=== PATIENT | male | born 1985 | race Caucasian/White ===

== ENCOUNTER 2017-08-21 11:17 | Emergency (ER) | payer OTHER, SELFPAY ==
[2017-08-21 11:20] VITALS: BMI 25.8
--- NOTE | 2017-08-21 12:26 | C.PDOC ---
History Of Present Illness 32 yo male w/PMhx of GERD come in for evaluation of intermittent episode of epigastric "tightness makes me hard to breath" since last night. Pt admits, sx is localized, worse with supine position. Admits, similar sx in past " but not as bad". Pt denies recent illness, fever, chills, headache, dizziness, neck pain , SOB, cough, wheezing, palpitation, V/D, back pain, UTI sx. Ambulate to Ed for evaluation, not in any apparent distress." Time Seen by Provider: 08/21/17 12:00 Chief Complaint (Nursing): Shortness Of Breath History Per: Patient Past Medical History Reviewed: Historical Data, Nursing Documentation, Vital Signs Vital Signs: Last Vital Signs Temp 98.1 F 08/21/17 11:20 Pulse 70 08/21/17 11:20 Resp 18 08/21/17 11:20 BP 132/92 H 08/21/17 11:20 Pulse Ox 100 08/21/17 12:28 - Medical History PMH: No Chronic Diseases Surgical History: No Surg Hx Family History: States: Unknown Family Hx - Social History Hx Tobacco Use: No Hx Alcohol Use: No Hx Substance Use: No - Immunization History Hx Tetanus Toxoid Vaccination: No Hx Influenza Vaccination: No Hx Pneumococcal Vaccination: No Review Of Systems Except As Marked, All Systems Reviewed And Found Negative. Constitutional: Negative for: Fever, Chills ENT: Negative for: Throat Pain Cardiovascular: Negative for: Chest Pain, Palpitations, Orthopnea, Edema, Light Headedness Respiratory: Positive for: Shortness of Breath. Negative for: Wheezing Gastrointestinal: Positive for: Nausea, Abdominal Pain (epigastric). Negative for: Vomiting, Diarrhea, Melena, Hematochezia, Hematemesis Musculoskeletal: Negative for: Neck Pain, Back Pain Skin: Negative for: Rash Neurological: Negative for: Weakness, Numbness, Altered Mental Status, Headache , Dizziness Physical Exam - Physical Exam Appears: Well, Non-toxic, No Acute Distress Skin: Normal Color, Warm, Dry, No Rash Head: Normacephalic Eye(s): bilateral: PERRL Nose: No Discharge Oral Mucosa: Moist Throat: No Erythema, No Drooling Neck: Trachea Midline, Supple Cardiovascular: Rhythm Regular, No Murmur, No JVD Respiratory: No Decreased Breath Sounds, No Accessory Muscle Use, No Stridor, No Wheezing Gastrointestinal/Abdominal: Soft, Tenderness (mild epigastric), No Distention, No Guarding, No Rebound Extremity: Normal ROM, No Pedal Edema, No Deformity, No Swelling Neurological/Psych: Oriented x3, Normal Speech ED Course And Treatment ECG: Interpreted By Me, Viewed By Me ECG Rhythm: Sinus Rhythm Interpretation Of ECG: SR@60/min, NAD, no acute T wave or ST-T changes. O2 Sat by Pulse Oximetry: 100 Pulse Ox Interpretation: Normal - Radiology CXR: Interpreted by Me, Viewed By Me Progress Note: On re-evaluation, pt is afebrile, hemodynamicaly stable. Non- toxic. Tolerate Po well in ED. PulseOx 100% RA. ENT: no acute findigs. Neck : Supple, (-) JVD, (-) carotid bruits B/L. Lungs: CTA B/L, BS equla B/L. CVS: (+)S1S2, reg. Abd: benign, (-) guarding, (-) rebound. Neurologicaly intact. EKG, CXR- no acute changes. Pt has clinical finidngs c/w epigastric pain r/o GERD. Pt advised. ref. to F/u with PMD, GI in 2-3 days for re-evaluation. return to ED if any worsening or new changes. Disposition Counseled Patient/Family Regarding: Studies Performed, Diagnosis, Need For Followup, Rx Given - Disposition Referrals: [facility] [Outside] Olegario Holley MD [Staff Provider] - Disposition: HOME/ ROUTINE Disposition Time: 13:01 Condition: STABLE Additional Instructions: Encourage fluids Diet restriction Take medication as prescribed Follow up with PMD, Gastroenterology in 2-3 days for re-evaluation. return to ED if any worsening or new changes. Prescriptions: Famotidine [Pepcid] 20 mg PO BID #20 tab Pantoprazole Sodium [Protonix] 40 mg PO DAILY #30 tablet.dr Instructions: Ulcer and Gastritis Diet, Gastritis Forms: [facility] (Belizean) Print Language: [place] - Clinical Impression Clinical Impression: Epigastric pain
[2017-08-21 13:46] VITALS: BP 123/79; PULSE 60; RESP 18; TEMP 98.4; O2SAT 98
--- NOTE | 2017-08-21 13:49 | RAD ---
HISTORY: Cough COMPARISON: No prior. TECHNIQUE: Chest PA and lateral FINDINGS: LUNGS: No active pulmonary disease. PLEURA: No significant pleural effusion identified. No pneumothorax apparent. CARDIOVASCULAR: Normal. OSSEOUS STRUCTURES: No significant abnormalities. VISUALIZED UPPER ABDOMEN: Normal. OTHER FINDINGS: None. IMPRESSION: No active disease. Concordant results with the preliminary interpretation rendered by the emergency department physician procedure.
--- NOTE | 2017-08-22 22:34 | CARD ---
APPROVED REPORT EKG Measurement Heart [id number] <Conclusion> Normal sinus rhythm Normal ECG
== END 2017-08-21 13:59 | disposition home or self-care (01) ==
LOC: C.ER 11:17
DX: R10.13 Epigastric pain (principal)

== ENCOUNTER 2017-11-26 08:05 | Emergency (ER) | payer OTHER ==
[2017-11-26 08:21] VITALS: BMI 24.3
[2017-11-26 08:23] VITALS: BP 138/90; PULSE 65; RESP 20; TEMP 98.3; O2SAT 100
--- NOTE | 2017-11-26 08:55 | C.PDOC ---
History Of Present Illness 32-year-old male presents to the emergency department with complaints of feeling anxious and having difficulty sleeping x3 days. He has felt this previously once before. He denies any chest pain, shortness of breath, palpitations, abdominal pain, SI/HI, nausea/vomiting, headache, dizziness, or any other associated symptoms. Pt has no PMD or psychiatrist. Time Seen by Provider: 11/26/17 08:24 Chief Complaint (Nursing): Medical Clearance History Per: Patient History/Exam Limitations: no limitations Onset/Duration Of Symptoms: Days (3) Current Symptoms Are (Timing): Still Present Severity: Mild Past Medical History Reviewed: Historical Data, Nursing Documentation, Vital Signs Vital Signs: Last Vital Signs Temp 98.3 F 11/26/17 08:21 Pulse 65 11/26/17 08:21 Resp 20 11/26/17 08:21 BP 138/90 11/26/17 08:21 Pulse Ox 100 11/26/17 08:21 - Medical History PMH: Gastritis Family History: States: No Known Family Hx - Social History Hx Tobacco Use: No Hx Alcohol Use: No Hx Substance Use: No - Immunization History Hx Tetanus Toxoid Vaccination: No Hx Influenza Vaccination: No Hx Pneumococcal Vaccination: No Review Of Systems Constitutional: Negative for: Fever Cardiovascular: Negative for: Chest Pain, Palpitations Respiratory: Negative for: Shortness of Breath Gastrointestinal: Negative for: Nausea, Vomiting, Abdominal Pain Neurological: Negative for: Headache, Dizziness Psych: Positive for: Anxiety Physical Exam - Physical Exam Appears: Well, Non-toxic, No Acute Distress Skin: Warm, Dry, No Rash Eye(s): bilateral: Normal Inspection Oral Mucosa: Moist Cardiovascular: Rhythm Regular, No Murmur Respiratory: Normal Breath Sounds, No Rales, No Rhonchi, No Wheezing Gastrointestinal/Abdominal: Normal Exam, Bowel Sounds, Soft, No Tenderness Extremity: Normal ROM, No Deformity Neurological/Psych: Oriented x3, Normal Cognition Gait: Steady ED Course And Treatment O2 Sat by Pulse Oximetry: 100 (RA) Pulse Ox Interpretation: Normal Progress Note: Patient given Rx for Benadryl, and instructed to follow up with [facility] within 1 week. He understands he should return to ED if he has any concerning symptoms. Disposition Counseled Patient/Family Regarding: Diagnosis, Need For Followup, Rx Given - Disposition Referrals: [facility] [Outside] Disposition: HOME/ ROUTINE Disposition Time: 08:55 Condition: STABLE Additional Instructions: FOLLOW UP WITH [facility] WITHIN 1 WEEK USE MEDICATION NEEDED FOR SLEEP RETURN TO EMERGENCY ROOM IF SYMPTOMS WORSEN SEGUIMIENTO CON [facility] DENTRO DE 1 SEMANA USE MEDICAMENTOS SEGN SEA NECESARIO PARA DORMIR REGRESE AL MEGAN DE EMERGENCIA SI LOS SNTOMAS EMPEORAN Prescriptions: DiphenhydrAMINE [Benadryl] 25 mg PO Q6 PRN #20 cap PRN Reason: Insomnia Instructions: Anxiety, Adult (DC) Forms: [employer] (Stateless), Work Excuse Print Language: [place] - POA Present On Arrival: None - Clinical Impression Clinical Impression: Insomnia, Anxiety - Scribe Statement The provider has reviewed the documentation as recorded by the Scribe (Mahi Salazar) Provider Attestation: All medical record entries made by the Scribe were at my direction and personally dictated by me. I have reviewed the chart and agree that the record accurately reflects my personal performance of the history, physical exam, medical decision making, and the department course for this patient. I have also personally directed, reviewed, and agree with the discharge instructions and disposition.
== END 2017-11-26 09:11 | disposition home or self-care (01) ==
LOC: C.ER 08:05
DX: F41.9 Anxiety disorder, unspecified (principal); G47.00 Insomnia, unspecified